=== PATIENT | male | born 1965 | race Native Hawaiian/Other Pacific Islander ===

== ENCOUNTER 2017-04-11 08:30 | Outpatient (CLI) | payer OTHER ==
[~2017-04-11 08:30] MED LIST: ALPR0.5T24 PO; HYDR-2748 PO; TRAMADOL HCL100 M1 OR
[2017-04-11 15:16] LABS: PLATELET COUNT 309 K/uL (142-355)
[2017-04-11 16:40] LABS: POTASSIUM 5.5 mmol/L (3.6-5.2); SODIUM 142 mmol/L (136-145)
== END 2017-04-11 19:35 | disposition home or self-care (01) ==
LOC: RAD 08:30 → LAB 08:30 → RAD 19:35
PROVIDERS: Nurse Practitioner Family
DX: Z00.00 Encounter for general adult medical examination without abnormal findings (principal); F41.8 Other specified anxiety disorders; Z87.39 Personal history of other diseases of the musculoskeletal system and connective tissue; R53.81 Other malaise; R53.83 Other fatigue; Z79.899 Other long term (current) drug therapy; Z51.81 Encounter for therapeutic drug level monitoring; R05 Cough; M79.605 Pain in left leg; E55.9 Vitamin D deficiency, unspecified
CPT/HCPCS: 80053; 80061; 82306; 82607; 83036; 84154; 84436; 84443; 85027

== ENCOUNTER 2018-03-13 09:31 | Emergency (ER) | payer OTHER ==
[~2018-03-13] VITALS: Ht 160 cm; Wt 74.8 kg
[2018-03-13 09:30] VITALS: BP 133/81; TEMP 97.3
== END 2018-03-13 10:30 | disposition home or self-care (01) ==
LOC: ED 09:31
DX: T25.222A Burn of second degree of left foot, initial encounter (principal); T65.891A Toxic effect of other specified substances, accidental (unintentional), initial encounter; T31.0 Burns involving less than 10% of body surface; Y92.89 Other specified places as the place of occurrence of the external cause
CPT/HCPCS: 90715; 99283; J1885

== ENCOUNTER 2019-03-11 01:51 | Emergency (ER) | payer OTHER ==
[~2019-03-11] VITALS: Ht 165.1 cm; Wt 79.8 kg
[2019-03-11 02:54] VITALS: BP 142/86; TEMP 97.8
== END 2019-03-11 03:00 | disposition home or self-care (01) ==
LOC: ED 01:51
DX: H16.133 Photokeratitis, bilateral (principal)
CPT/HCPCS: 99283

== ENCOUNTER 2019-07-21 16:25 | Outpatient (CLI) | payer OTHER | END 2019-07-21 16:30 | disposition short-term general hospital (02) | LOC: AMB 16:25 | DX: M54.89 Other dorsalgia (principal); M25.551 Pain in right hip; R51 Headache; S01.81XA Laceration without foreign body of other part of head, initial encounter; V89.2XXA Person injured in unspecified motor-vehicle accident, traffic, initial encounter; Y92.413 State road as the place of occurrence of the external cause | CPT/HCPCS: A0425; A0427 ==

== ENCOUNTER 2019-07-21 16:34 | Emergency (ER) | payer OTHER ==
[~2019-07-21] VITALS: Ht 165.1 cm; Wt 79.8 kg
[2019-07-21 17:32] LABS: PLATELET COUNT 338 K/uL (142-355)
[2019-07-21 17:37] LABS: POTASSIUM 3.6 mmol/L (3.6-5.2)
[2019-07-21 17:40] LABS: PARTIAL THROMBOPLASTIN TIME 26.1 SECONDS (24.5-33.6)
[2019-07-21 19:29] VITALS: BP 153/97; TEMP 98.8
== END 2019-07-21 19:31 | disposition home or self-care (01) ==
LOC: ED 16:34
PROVIDERS: Hospitalist
DX: S00.03XA Contusion of scalp, initial encounter (principal); S16.1XXA Strain of muscle, fascia and tendon at neck level, initial encounter; S39.012A Strain of muscle, fascia and tendon of lower back, initial encounter; V59.40XA Driver of pick-up truck or van injured in collision with unspecified motor vehicles in traffic accident, initial encounter; Y92.89 Other specified places as the place of occurrence of the external cause
CPT/HCPCS: 80048; 80320; 85027; 85610; 85730; 96374; 99284; J1885

== ENCOUNTER 2019-08-07 10:29 | Emergency (ER) | payer OTHER ==
[~2019-08-07] VITALS: Ht 165.1 cm; Wt 79.8 kg
[2019-08-07 10:44] VITALS: TEMP 98.1
[2019-08-07 11:18] VITALS: BP 146/78
== END 2019-08-07 11:19 | disposition home or self-care (01) ==
LOC: ED 10:29
DX: S16.1XXA Strain of muscle, fascia and tendon at neck level, initial encounter (principal); S39.012A Strain of muscle, fascia and tendon of lower back, initial encounter
CPT/HCPCS: 96372; 99282; J1885

== ENCOUNTER 2023-02-20 06:48 | Emergency (ER) | payer OTHER ==
[~2023-02-20] VITALS: Ht 165.1 cm; Wt 74.8 kg
[2023-02-20 07:25] LABS: POTASSIUM 3.9 mmol/L (3.6-5.2)
[2023-02-20 07:27] LABS: PLATELET COUNT 321 K/uL (142-355)
[2023-02-20 07:53] VITALS: BP 111/70; TEMP 97.8
== END 2023-02-20 07:53 ==
LOC: ED 06:48
PROVIDERS: Emergency Medicine
DX: I21.3 ST elevation (STEMI) myocardial infarction of unspecified site (principal); F17.210 Nicotine dependence, cigarettes, uncomplicated
CPT/HCPCS: 36415; 43754; 80053; 84484; 85027; 85610; 85730; 92977; 93005; 96365; 96375; 96376; 99285; J1642; J1644; J2270; J2405; J3101; J3490